=== PATIENT | female | born 1970 | race African-American/Black ===

== ENCOUNTER 2016-04-18 08:54 | Emergency (ER) | payer OTHER ==
[~2016-04-18] VITALS: Ht 180.3 cm; Wt 152.5 kg
[~2016-04-18 08:54] MED LIST: ACIPHEX20 MG PO; ALBUTEROL SULF8.5 GM IH; AMBIEN10 MG PO; ATORVASTATIN CA10 MG PO; BENTYL10 MG PO; BENTYL20 MG PO; BUPROPION XL300 MG PO; BUTALB-ACETAMI1 EAC2 PO; BUTALB-CAFF-AC1 EACH PO; CARAFATE1 GM PO; CLONAZEPAM0.5 MG PO; COLACE100 MG PO; CYMBALTA60 MG PO; DESYREL 150 MG150 MG PO; DESYREL100 MG PO; EMBEDA 30-1.21 EACH PO; FIORICET 50-301 EACH PO; FIORICET WI1 CAPSULE PO; FOLIC ACID1 MG PO; IMODIUM MS REL1 EACH PO; INSULIN; KEFLEX500 MG PO; KEPPRA1000 MG PO; KEPPRA250 MG PO; KEPPRA750 MG PO; KLONOPIN PO; KLONOPIN1 MG; KLOR-CON20 MEQ; LANTUS; LANTUS 10100 UNITS/ SC; LANTUS100 UNIT/1 SQ; LATUDA20 MG PO; LATUDA80 MG PO; LEVETIRACETAM500 MG PO; LEXAPRO10 MG PO; LIDOCAINE20 MG/1 M5 PO; LIPITOR40 MG PO; LIPITOR80 MG PO; LISINOPRIL10 MG PO; LORATADINE10 M2 PO; LYRICA50 MG PO; MEDROL DOSEPAK4 MG PO; METFORMIN HCL500 M1; METFORMIN HCL500 MG; METOCLOPRAMIDE10 MG PO; MORPHINE SULFAT15 M1 PO; NEURONTIN400 M1; NEURONTIN400 M1 PO; NORCO 5/3251 TABLET PO; NOVOLOG; NOVOLOG 10100 UNITS/ SC; OMEPRAZOLE40 M1 PO; OPANA ER10 MG PO; OPANA ER20 MG PO; OPANA ER40 MG PO; OXYCODONE HCL30 MG PO; OXYCONTIN10 MG PO; OXYMORPHONE HCL10 M1 PO; PEPCID20 MG PO; PERCOCET 10-321 EACH PO; PERCOCET 5/31 TABLET PO; PHENERGAN12.5 M1 PO; PRILOSEC; PRINIVIL20 MG PO; PROMETHAZINE HC25 M1 PO; REGLAN10 MG PO; RISPERDAL2 MG PO; SEROQUEL PO; SOMA350 M1; SUDAFED30 MG PO; SYNTHROID200 MCG PO; SYNTHROID50 MCG PO; TOPAMAX100 MG PO; TOPAMAX200 MG PO; TOPAMAX50 MG PO; TOPIRAMATE50 MG; TRAZODONE HCL50 MG; TUMS500 MG PO; TYLENOL WITH C1 EACH PO; VIIBRYD20 MG PO; VITAMIN B 12 PO; VITAMIN D-32000 UNI2 PO; XYZAL5 MG PO; ZESTRIL,PRINIVIL5 MG PO; ZOFRAN ODT4 MG PO
[2016-04-18 10:15] LABS: HEMATOCRIT 37.6 % (36.0-46.0); MCH 26.3 PG (29.0-34.0); MCHC 31.6 G/DL (30.0-36.0); MEAN PLAT.VOLUME 10.6 uM^3 (9.5-12.4); PLATELET COUNT 251 K/uL (156-360); RBC DIS.WIDTH-CV 17.9 % (11.8-14.6); RED BLOOD COUNT 4.53 M/uL (3.80-5.20); WHITE BLOOD COUNT 14.5 K/uL (4.1-10.2)
[2016-04-18 10:25] LABS: CHLORIDE 105 mEq/L (99-109); POTASSIUM 3.8 mEq/L (3.7-5.4); SODIUM 142 mEq/L (136-147)
[2016-04-18 10:26] LABS: GLUCOSE 143 mg/dL (70-99)
[2016-04-18 10:28] LABS: ANION GAP 10 MEQ/L (2-14)
[2016-04-18 10:30] LABS: GFR ESTIMATE (CALCULATED) > 59 mL/min/
[2016-04-18 10:31] LABS: UREA NITROGEN (BUN) 15 mg/dL (9-23)
[2016-04-18 11:11] LABS: EOSINOPHIL (%) 1.2 % (0-5); EOSINOPHIL COUNT 0.2 K/uL (0-0.3); HEMATOLOGY COMMENT 1 SMEAR COMPATIBLE; IMMATURE GRANULOCYTE (%) 0.3 % (0.0-0.7); IMMATURE GRANULOCYTE COUNT 0.4 K/uL; LYMPHOCYTE COUNT 5.6 K/uL (1.0-2.8); MONOCYTE (%) 5.5 % (3-12); MONOCYTE COUNT 0.8 K/uL (0-0.8); NEUTROPHIL (%) 53.8 % (45-76); NEUTROPHIL COUNT 7.8 K/uL (1.8-6.4); PLAT.SUFFICIENCY ADEQUATE; USER ID TLW
[2016-04-18 15:20] VITALS: BP 115/84
== END 2016-04-18 15:26 | disposition home or self-care (01) ==
LOC: EME 08:54
PROVIDERS: Emergency Medicine
DX: R51 Headache (principal); R25.2 Cramp and spasm; D32.9 Benign neoplasm of meninges, unspecified; E11.9 Type 2 diabetes mellitus without complications; E78.5 Hyperlipidemia, unspecified; Z92.3 Personal history of irradiation; Z85.850 Personal history of malignant neoplasm of thyroid; Z86.73 Personal history of transient ischemic attack (TIA), and cerebral infarction without residual deficits; Z88.6 Allergy status to analgesic agent; F17.200 Nicotine dependence, unspecified, uncomplicated
CPT/HCPCS: 70450; 80048; 85025; 93970; 99281; 99285; J3010; J7030

== ENCOUNTER 2016-11-26 12:42 | Observation (INO) | payer OTHER ==
[~2016-11-26] VITALS: Ht 180.3 cm; Wt 138.5 kg
[~2016-11-26 12:42] MED LIST changes: +BASAGLAR K100 UNIT/1 SC; -DESYREL 150 MG150 MG PO; -KEPPRA750 MG PO; +TRAZODONE HCL50 MG PO
[2016-11-26 14:35] LABS: HEMATOCRIT 42.6 % (36.0-46.0); MCH 26.5 PG (29.0-34.0); MCHC 31.9 G/DL (30.0-36.0); MCV 82.9 FL (83-99); MEAN PLAT.VOLUME 11.8 uM^3 (9.5-12.4); PLATELET COUNT 338 K/uL (156-360); RBC DIS.WIDTH-CV 15.8 % (11.8-14.6); RBC DIS.WIDTH-SD 47.8 % (39-53); RED BLOOD COUNT 5.14 M/uL (3.80-5.20); WHITE BLOOD COUNT 17.4 K/uL (4.1-10.2)
[2016-11-26 14:38] LABS: ADD MIUA? YES; BILIRUBIN NEGATIVE; BLOOD NEGATIVE; COLOR YELLOW ((YELLOW)); GLUCOSE (STRIP) >=500; KETONES 20; LEUKOCYTES NEGATIVE; NITRITE NEGATIVE; PROTEIN (STRIP) 30; UROBILINOGEN 0.2 MG/DL (0.2-1.0)
[2016-11-26 14:43] LABS: BACTERIA RARE /HPF; EPITHELIAL CELLS 2+ /HPF; MUCUS TRACE /LPF; RED BLOOD CELLS 0-5 /HPF (0-5); UCUL ADDED? NO; WHITE BLOOD CELLS 0-5 /HPF (0-5)
[2016-11-26 14:58] LABS: QUANTITATIVE HCG < 4.0 MIU/ML
[2016-11-26 16:13] LABS: CHLORIDE 102 mEq/L (99-109); POTASSIUM 4.4 mEq/L (3.7-5.4); SODIUM 137 mEq/L (136-147)
[2016-11-26 16:15] LABS: GLUCOSE 382 mg/dL (70-99)
[2016-11-26 16:16] LABS: ANION GAP 14 MEQ/L (2-14)
[2016-11-26 16:17] LABS: TOTAL BILIRUBIN 0.4 mg/dL (0.0-1.0)
[2016-11-26 16:19] LABS: ALKALINE PHOSPHATASE 107 IU/L (3-129); GFR ESTIMATE (CALCULATED) > 59 mL/min/
[2016-11-26 16:20] LABS: UREA NITROGEN (BUN) 14 mg/dL (9-23)
[2016-11-26 16:41] LABS: CHLORIDE 102 mEq/L (99-109); POTASSIUM 4.4 mEq/L (3.7-5.4); SODIUM 136 mEq/L (136-147)
[2016-11-26 16:43] LABS: GLUCOSE 336 mg/dL (70-99)
[2016-11-26 16:44] LABS: ANION GAP 15 MEQ/L (2-14)
[2016-11-26 16:45] LABS: TOTAL BILIRUBIN 0.4 mg/dL (0.0-1.0)
[2016-11-26 16:46] LABS: ALKALINE PHOSPHATASE 104 IU/L (3-129)
[2016-11-26 16:47] LABS: GFR ESTIMATE (CALCULATED) > 59 mL/min/
[2016-11-26 16:48] LABS: UREA NITROGEN (BUN) 14 mg/dL (9-23)
[2016-11-26 16:50] LABS: LIPASE 3 U/L (1.0-51.0)
[2016-11-26 18:33] LABS: EOSINOPHIL (%) 0 % (0-5); IMMATURE GRANULOCYTE (%) 0.5 % (0.0-0.7); IMMATURE GRANULOCYTE COUNT 0.1 K/uL; LYMPHOCYTE COUNT 2.7 K/uL (1.0-2.8); MONOCYTE (%) 3.1 % (3-12); MONOCYTE COUNT 0.5 K/uL (0-0.8); NEUTROPHIL (%) 80.7 % (45-76)
[2016-11-26 21:43] VITALS: BP 139/65
[2016-11-27 00:37] VITALS: BP 140/64
[2016-11-27 04:41] VITALS: BP 126/59
[2016-11-27 05:26] LABS: HEMATOCRIT 37.3 % (36.0-46.0); MCH 25.8 PG (29.0-34.0); MCHC 30.8 G/DL (30.0-36.0); MCV 83.6 FL (83-99); MEAN PLAT.VOLUME 11.6 uM^3 (9.5-12.4); PLATELET COUNT 279 K/uL (156-360); RBC DIS.WIDTH-CV 15.6 % (11.8-14.6); RBC DIS.WIDTH-SD 47.6 % (39-53); RED BLOOD COUNT 4.46 M/uL (3.80-5.20); WHITE BLOOD COUNT 11.9 K/uL (4.1-10.2)
[2016-11-27 05:51] LABS: ALKALINE PHOSPHATASE 87 IU/L (3-129); ANION GAP 8 MEQ/L (2-14); CHLORIDE 106 MEQ/L (99-109); GFR ESTIMATE (CALCULATED) > 59 mL/min/; GLUCOSE 209 mg/dL (70-99); SAMPLE HEMOLYSIS CHECK 0; SAMPLE ICTERIC CHECK 0; SAMPLE LIPEMIA CHECK 0; SODIUM 140 MEQ/L (136-147); TOTAL BILIRUBIN 0.5 MG/DL (0.0-1.0); UREA NITROGEN (BUN) 9 mg/dL (9-23)
[2016-11-27 07:28] VITALS: BP 128/81
[2016-11-27 10:57] LABS: POINT-OF-CARE METER ID UU13113800
[2016-11-27] MEDS ORDERED: NOVOLOG 10100 UNITS/ SC (11:22)
[2016-11-27] MEDS ORDERED: OXYCODONE-APAP1 EACH PO (11:25)
[2016-11-27] MEDS ORDERED: ALBUTEROL2.5 MG/3 M IH (11:25)
[2016-11-27] MEDS ORDERED: ATARAX,VISTARIL25 MG PO (11:25)
[2016-11-27] MEDS ORDERED: PROAIR HFA8.5 GM IH (11:30)
[2016-11-27] MEDS ORDERED: VIIBRYD20 MG PO (11:31)
[2016-11-27] MEDS ORDERED: CETIRIZINE HCL10 M2 PO (11:38)
[2016-11-27 12:00] VITALS: BP 134/70
[2016-11-27] MEDS ORDERED: ZOFRAN4 MG PO (12:06)
[2016-11-27] MEDS ORDERED: BENTYL10 MG PO (12:06)
[2016-11-27] MEDS ORDERED: DIFLUCAN150 MG PO (12:06)
== END 2016-11-27 14:22 | disposition home or self-care (01) ==
LOC: EME 12:42 → EDOF 20:18 → 5WEST 20:18 → ENRESERV 20:29 → 5WEST 21:24
PROVIDERS: Hospitalist; Physician Assistant
DX: R11.2 Nausea with vomiting, unspecified (principal); R19.7 Diarrhea, unspecified; R10.9 Unspecified abdominal pain; E86.0 Dehydration; G40.909 Epilepsy, unspecified, not intractable, without status epilepticus; E11.65 Type 2 diabetes mellitus with hyperglycemia; E66.01 Morbid (severe) obesity due to excess calories; Z68.41 Body mass index [BMI] 40.0-44.9, adult; E78.5 Hyperlipidemia, unspecified; Z79.4 Long term (current) use of insulin; J44.9 Chronic obstructive pulmonary disease, unspecified; F19.11 Other psychoactive substance abuse, in remission; Z79.891 Long term (current) use of opiate analgesic; Z87.11 Personal history of peptic ulcer disease; F17.210 Nicotine dependence, cigarettes, uncomplicated; L29.2 Pruritus vulvae; F32.9 Major depressive disorder, single episode, unspecified; J32.9 Chronic sinusitis, unspecified; E87.2 Acidosis; K59.00 Constipation, unspecified; Z90.710 Acquired absence of both cervix and uterus; Z88.6 Allergy status to analgesic agent; Z88.8 Allergy status to other drugs, medicaments and biological substances; Z91.030 Bee allergy status
CPT/HCPCS: 74177; 80053; 81003; 82010; 82800; 82948; 83605; 83690; 84702; 85025; 85027; 87493; 99281; 99283; G0378; J0500; J1815; J2405; J3010; J7030

== ENCOUNTER 2016-12-21 09:11 | Emergency (ER) | payer OTHER ==
[~2016-12-21] VITALS: Ht 180.3 cm; Wt 142.4 kg
[~2016-12-21 09:11] MED LIST changes: +ALBUTEROL2.5 MG/3 M IH; +ATARAX,VISTARIL25 MG PO; +CETIRIZINE HCL10 M2 PO; +DIFLUCAN150 MG PO; +OXYCODONE-APAP1 EACH PO; +PROAIR HFA8.5 GM IH; +ZOFRAN4 MG PO
[2016-12-21 10:07] LABS: MCH 25.8 PG (29.0-34.0); MCHC 31.5 G/DL (30.0-36.0); MCV 82.1 FL (83-99); MEAN PLAT.VOLUME 12.3 uM^3 (9.5-12.4); PLATELET COUNT 359 K/uL (156-360); RBC DIS.WIDTH-CV 16.2 % (11.8-14.6); RBC DIS.WIDTH-SD 47.7 % (39-53)
[2016-12-21 10:08] LABS: RED BLOOD COUNT 5.85 M/uL (3.80-5.20)
[2016-12-21 10:16] LABS: CHLORIDE 104 mEq/L (99-109); POTASSIUM 4.2 mEq/L (3.7-5.4); SODIUM 140 mEq/L (136-147)
[2016-12-21 10:18] LABS: GLUCOSE 284 mg/dL (70-99)
[2016-12-21 10:20] LABS: ANION GAP 15 MEQ/L (2-14)
[2016-12-21 10:22] LABS: GFR ESTIMATE (CALCULATED) > 59 mL/min/
[2016-12-21 10:23] LABS: UREA NITROGEN (BUN) 8 mg/dL (9-23)
[2016-12-21 11:41] LABS: ADD MIUA? YES; BILIRUBIN NEGATIVE; BLOOD NEGATIVE; COLOR YELLOW ((YELLOW)); GLUCOSE (STRIP) 50; KETONES NEGATIVE; LEUKOCYTES NEGATIVE; NITRITE NEGATIVE; PROTEIN (STRIP) 30; SPECIFIC GRAVITY 1.026 (1.000-1.030); UROBILINOGEN 0.2 MG/DL (0.2-1.0)
[2016-12-21 11:43] LABS: BACTERIA RARE /HPF; EPITHELIAL CELLS 1+ /HPF; MUCUS 2+ /LPF; RED BLOOD CELLS 0-5 /HPF (0-5); UCUL ADDED? NO; WHITE BLOOD CELLS 0-5 /HPF (0-5)
[2016-12-21 12:09] LABS: INFLUENZA A VIRAL ANTIGEN NEGATIVE; INFLUENZA B VIRAL ANTIGEN NEGATIVE
[2016-12-21] MEDS ORDERED: ZITHROMAX Z-PA250 MG PO (13:28)
[2016-12-21 13:30] VITALS: BP 165/78
== END 2016-12-21 13:34 | disposition home or self-care (01) ==
LOC: EME 09:11
PROVIDERS: Nurse Practitioner Family
DX: J06.9 Acute upper respiratory infection, unspecified (principal); K21.9 Gastro-esophageal reflux disease without esophagitis; J44.9 Chronic obstructive pulmonary disease, unspecified; I10 Essential (primary) hypertension; E78.5 Hyperlipidemia, unspecified; E11.9 Type 2 diabetes mellitus without complications; E03.9 Hypothyroidism, unspecified; F41.9 Anxiety disorder, unspecified; F32.9 Major depressive disorder, single episode, unspecified; G43.909 Migraine, unspecified, not intractable, without status migrainosus; R56.9 Unspecified convulsions; Z79.4 Long term (current) use of insulin; F17.210 Nicotine dependence, cigarettes, uncomplicated; Z86.73 Personal history of transient ischemic attack (TIA), and cerebral infarction without residual deficits; Z88.8 Allergy status to other drugs, medicaments and biological substances
CPT/HCPCS: 71020; 80048; 81003; 85027; 87502; 87651 90; 99281; 99284